=== PATIENT | male | born 2000 | race Caucasian/White ===

== ENCOUNTER 2019-04-25 20:42 | Emergency (ER) | payer OTHER ==
[~2019-04-25] VITALS: Ht 190.5 cm; Wt 86.3 kg
--- NOTE | 2019-04-25 22:56 | REPVR ---
PROCEDURE INFORMATION: Exam: US Pelvis Limited, Male Exam date and time: 04/25/2019 10:28 PM Age: 19 years old Clinical indication: Pain; Other: Lt groin; Additional info: Painful lump left groin/? Hernia TECHNIQUE: Imaging protocol: Real-time pelvic ultrasound with image documentation. COMPARISON: No relevant prior studies available. FINDINGS: Soft tissues inguinal region: There is a left inguinal hernia demonstrated at the inguinal ring which increases with Valsalva maneuver. No right inguinal hernia. IMPRESSION: There is a left inguinal hernia demonstrated at the inguinal ring which increases with Valsalva maneuver. Electronically signed by: Josep Dotson On 04/25/2019 22:55:48 PM
[2019-04-25] MEDS ORDERED: IBUP80TA PO (23:03)
[2019-04-25 23:08] VITALS: BP 121/69
== END 2019-04-25 23:13 | disposition home or self-care (01) ==
LOC: M ED 20:42
DX: K40.90 Unilateral inguinal hernia, without obstruction or gangrene, not specified as recurrent (principal)

== ENCOUNTER 2019-09-27 17:52 | Emergency (ER) | payer OTHER ==
[~2019-09-27] VITALS: Ht 193 cm; Wt 86.5 kg
[~2019-09-27 17:52] MED LIST: IBUP80TA PO
[2019-09-27 17:53] VITALS: BP 128/76
[2019-09-27] MEDS ORDERED: LIDOCAINE VISCOUS 2% SOLN 15ML UDC SS ONE (18:45)
[2019-09-27] MEDS ORDERED: IBUPROFEN 600MG TAB PO ONE (18:45)
[2019-09-27] MEDS ORDERED: AMOXICILLIN 500 MG CAP PO ONE (18:45)
[2019-09-27] MEDS ORDERED: AMOX500C PO (18:49)
[2019-09-27] MEDS ORDERED: LIDO2SOL17 PO (18:50)
[2019-09-27] MEDS ORDERED: IBUP-1022 PO (18:50)
== END 2019-09-27 18:52 | disposition home or self-care (01) ==
LOC: M ED 17:52
DX: J02.0 Streptococcal pharyngitis (principal)

== ENCOUNTER 2021-04-22 19:26 | Emergency (ER) | payer OTHER ==
[~2021-04-22] VITALS: Ht 193 cm; Wt 96.7 kg
[~2021-04-22 19:26] MED LIST changes: +AMOX500C PO; +IBUP-1022 PO; +LIDO2SOL17 PO
[2021-04-22] MEDS ORDERED: predniSONE 20 MG TAB PO ONE (20:35)
[2021-04-22] MEDS ORDERED: AUGMENTIN 875 MG TAB PO ONE (20:35)
[2021-04-22] MEDS ORDERED: PRED20TA PO (20:36)
[2021-04-22] MEDS ORDERED: AMOX875T2 PO (20:36)
[2021-04-22 20:40] VITALS: BP 129/88
== END 2021-04-22 20:48 | disposition home or self-care (01) ==
LOC: M ED 19:26
DX: J36 Peritonsillar abscess (principal); R05.9 Cough, unspecified
CPT/HCPCS: 87880; 99283; J7512